=== PATIENT | male | born 1965 | race American Indian/Alaskan Native ===

== ENCOUNTER 2017-05-10 12:28 | Inpatient (IN) | payer OTHER ==
[2017-05-10] MEDS ORDERED: NACL 0.9% 1000 ML 1,000 ML IV ONE (12:50)
[2017-05-10] MEDS ORDERED: CARDIZEM IV ONE ×2 (12:51→13:22)
[2017-05-10 13:20] LABS: Basophils # (Auto) 0.1 K/mm3 (0.0-0.1); Basophils % (Auto) 0.9 % (0.0-1.8); Eosinophils # (Auto) 0.1 K/mm3 (0.0-0.4); Eosinophils % (Auto) 1.7 % (0.0-4.3); Hematocrit 46.1 % (35.5-45.6); Hemoglobin 15.5 gm/dl (11.8-15.2); Lymphocytes # (Auto) 2.1 K/mm3 (1.2-5.4); Lymphocytes % (Auto) 26.7 % (13.4-35.0); Mean Corpuscular HGB Conc 34 % (32-34); Mean Corpuscular Hemoglobin 28 pg (28-32); Mean Corpuscular Volume 84 fl (84-94); Monocytes # (Auto) 0.5 K/mm3 (0.0-0.8); Monocytes % (Auto) 5.8 % (0.0-7.3); Platelet Count 415 K/mm3 (140-440)
[2017-05-10] MEDS ORDERED: CARDIZEM/D5W 100MG/100ML 100 MG/100 ML BAG IV ONE (13:22)
[2017-05-10 13:27] LABS: BUN/Creatinine Ratio 13; Blood Urea Nitrogen 15 mg/dL (9-20); Calcium 9.3 mg/dL (8.4-10.2); Hemolysis Index 7
--- NOTE | 2017-05-10 13:27 | Emergency Department Report ---
HPI - General Chief Complaint: Arrhythmia/Palpitations Time Seen by Provider: 05/10/17 12:43 - HPI HPI: This is a 51 year-old male presents to the emergency department from [facility] cardiology with complaint of new onset atrial flutter with tachycardia. The patient was at [facility] 2 days ago for some exertional shortness of breath and chest pain. He was going to have a echocardiogram and stress test done but apparently they did not take his insurance. For this reason, he was set up to see the flower maker today to get a stress test done. He completed the stress test but then they noticed that he was having a rapid rate and appeared in atrial flutter. The patient has a history of hypertension. He is a nonsmoker and denies any illicit drug use. ED Past Medical Hx - Social History Smoking Status: Never Smoker - Medications Home Medications: Home Medications Medication Instructions Recorded Confirmed Last Taken Type Amlodipine Besylate [Norvasc] 5 mg PO QDAY 05/10/17 05/10/17 05/10/17 History Aspirin [Adult Low Dose Aspirin EC] 81 mg PO DAILY 05/10/17 05/10/17 05/10/17 History Pantoprazole [Protonix] 40 mg PO QDAY 05/10/17 05/10/17 Unknown History Simvastatin [Zocor TAB] 20 mg PO QHS 05/10/17 05/10/17 Unknown History ED Review of Systems ROS: Stated complaint: HIGH HEART RATE Other details as noted in HPI Comment: All other systems reviewed and negative Constitutional: denies: chills, fever Eyes: denies: eye pain, eye discharge, vision change ENT: denies: ear pain, throat pain Respiratory: denies: cough, shortness of breath, wheezing Cardiovascular: palpitations. denies: edema Gastrointestinal: denies: abdominal pain, nausea, diarrhea Genitourinary: denies: urgency, dysuria Musculoskeletal: denies: back pain, joint swelling, arthralgia Skin: denies: rash, lesions Neurological: denies: headache, weakness, paresthesias Physical Exam - Physical Exam Vital Signs: Vital Signs 05/10/17 12:50 Temperature 98.4 F Pulse Rate 140 H Respiratory 16 Rate Blood Pressure 132/78 [Right] O2 Sat by Pulse 98 Oximetry Physical Exam: GENERAL: The patient is well-developed well-nourished. HENT: Normocephalic. Atraumatic. Patient has moist mucous membranes. EYES: Extraocular motions are intact. Pupils equal reactive to light bilaterally. NECK: Supple. Trachea is midline. CHEST/LUNGS: Clear to auscultation. There is no respiratory distress noted. HEART/CARDIOVASCULAR: Irregular with rapid rate. No obvious murmurs. ABDOMEN: Abdomen is soft, nontender. Patient has normal bowel sounds. There is no abdominal distention. SKIN: Skin is warm and dry. NEURO: The patient is awake, alert, and oriented. The patient is cooperative. The patient has no focal neurologic deficits. The patient has normal speech and gait. MUSCULOSKELETAL: There is no tenderness or deformity. There is no limitation range of motion. There is no evidence of acute injury. ED Course Vital Signs 05/10/17 12:50 Temperature 98.4 F Pulse Rate 140 H Respiratory 16 Rate Blood Pressure 132/78 [Right] O2 Sat by Pulse 98 Oximetry ED Medical Decision Making - Lab Data Result diagrams: 05/10/17 12:56 05/10/17 12:56 - EKG Data -: EKG Interpreted by Me - EKG Data When compared to previous EKG there are: previous EKG unavailable Interpretation: other (atrial flutter, normal axis, rate of 142 bpm, no ST elevation RI) - Medical Decision Making The patient's EKG originally appeared consistent with an atrial flutter but after getting some Cardizem and being on the monitoring engineer it appears consistent with atrial fibrillation. Patient seems to respond to Cardizem but once he gets up or moves around his heart rate was spiked back up. He did not convert to a sinus rhythm. For this reason he will be placed on a Cardizem drip. Labs unremarkable and do not show any etiology of his symptoms. He will be admitted to the hospital for further evaluation, echocardiogram and cardiac consultation has been accepted for admission by the hospitalist, Dr. Alvarez. - Differential Diagnosis A-fib, A-flutter, RI, Hyperthyroidism Critical Care Time: No Critical care attestation.: If time is entered above; I have spent that time in minutes in the direct care of this critically ill patient, excluding procedure time. ED Disposition Clinical Impression: New onset atrial fibrillation, Atrial fibrillation with RVR Disposition: OP ADMIT IP TO THIS HOSP Is pt being admited?: Yes Does the pt Need Aspirin: Yes Condition: Stable Referrals: PRIMARY CARE, [Primary Care Provider] - 3-5 Days Time of Disposition: 14:57
[2017-05-10] MEDS ORDERED: BABY ASPIRIN PO ONE (14:57)
[2017-05-10] MEDS ORDERED: CARDIZEM 100 MG in D5W 100 ML IV ONE (15:00)
[2017-05-10] MEDS ORDERED: BABY ASPIRIN ONE (17:17)
[2017-05-10] MEDS: ELIQUIS PO SCH ×2 (17:43→23:06)
--- NOTE | 2017-05-10 18:06 | Consultation ---
History of Present Illness Consult date: 05/10/17 Requesting physician: GLORIA JIMENEZ Consult reason: arrhythmia (atrial flutter with a rapid ventricular response) History of present illness: 51-year-old gentleman with a past medical history of hypertension, hyperlipidemia, and gastroesophageal reflux disease who presents to [facility] emergency department with atrial flutter versus ectopic atrial tachycardia at about 142 bpm. The patient was being seen at [facility] heart specialists as an outpatient he was undergoing an exercise treadmill test and after the test developed an atrial arrhythmia. The patient was completely asymptomatic and unaware that his heart rate was: 142 bpm. Of note the patient reports that several weeks ago he was seen at an urgent care for chest pain or shortness of breath he subsequently was evaluated in the [facility] emergency department and was referred to a aircraft structural repair mechanic as an outpatient for follow-up. She will emergency department the patient was started on a Cardizem drip and subsequently converted to normal sinus rhythm. Past History Past Medical History: hypertension Past Surgical History: No surgical history Social history: denies: smoking, alcohol abuse, IV drug use Family history: no significant family history Medications and Allergies Allergies Allergy/AdvReac Type Severity Reaction Status Date / Time No Known Allergies Allergy Unverified 05/10/17 15:10 Home Medications Medication Instructions Recorded Confirmed Last Taken Type Amlodipine Besylate [Norvasc] 5 mg PO QDAY 05/10/17 05/10/17 05/10/17 History Aspirin [Adult Low Dose Aspirin EC] 81 mg PO DAILY 05/10/17 05/10/17 05/10/17 History Pantoprazole [Protonix] 40 mg PO QDAY 05/10/17 05/10/17 Unknown History Simvastatin [Zocor TAB] 20 mg PO QHS 05/10/17 05/10/17 Unknown History Active Meds: Active Medications Apixaban (Eliquis) 10 mg PO Q12HR KIANA PRN Reason: Protocol Last Admin: 05/10/17 17:43 Dose: 10 mg Sodium Chloride (Nacl 0.9% 1000 Ml) 1,000 mls @ 125 mls/hr IV ONCE ONE Stop: 05/10/17 20:49 Last Admin: 05/10/17 13:16 Dose: 125 mls/hr Diltiazem HCl 100 mg/ Dextrose 120 mls @ 6 mls/hr IV ONCE.ED ONE; 5 MG/HR PRN Reason: Protocol Stop: 05/11/17 10:59 Last Admin: 05/10/17 15:11 Dose: 5 mg/hr, 6 mls/hr Review of Systems Constitutional: no weight loss, no weight gain, no fever, no chills, no sweats Ears, nose, mouth and throat: deferred Cardiovascular: no chest pain, no orthopnea, no palpitations, no rapid/ irregular heart beat, no edema, no syncope, no lightheadedness, no shortness of breath Respiratory: no shortness of breath, no dyspnea on exertion, no wheezing, no pleurisy Gastrointestinal: no abdominal pain, no nausea, no vomiting, no diarrhea, no constipation Genitourinary Male: no dysuria, no hematuria Rectal: no pain, no bleeding Musculoskeletal: no neck stiffness, no neck pain, no shooting arm pain Integumentary: no rash, no pruritis Neurological: no head injury, no transient paralysis, no paralysis Psychiatric: no anxiety, no memory loss Endocrine: no cold intolerance, no heat intolerance Hematologic/Lymphatic: no easy bruising, no easy bleeding Allergic/Immunologic: no urticaria, no allergic rhinitis Physical Examination Vital Signs Temp Pulse Resp BP Pulse Ox 98.4 F 140 H 16 132/78 98 05/10/17 12:50 05/10/17 12:50 05/10/17 12:50 05/10/17 12:50 05/10/17 12:50 General appearance: no acute distress HEENT: Positive: PERRL, EOMI Neck: Positive: neck supple, trachea midline Cardiac: Positive: Reg Rate and Rhythm, Regular Rate Lungs: Positive: Normal Exam, clear to auscultation, Normal Breath Sounds Neuro: Positive: Grossly Intact. Negative: Numbness, Weakness Abdomen: Positive: Unremarkable, Soft, Active Bowel Sounds Male genitourinary: Positive: deferred Skin: Negative: Rash, Suspicious Lesions Extremities: Present: normal, warm. Absent: edema Results 05/10/17 12:56 05/10/17 12:56 CBC 05/10/17 Range/Units 12:56 WBC 7.9 (4.5-11.0) K/mm3 RBC 5.50 H (3.65-5.03) M/mm3 Hgb 15.5 H (11.8-15.2) gm/dl Hct 46.1 H (35.5-45.6) % Plt Count 415 (140-440) K/mm3 Lymph # 2.1 (1.2-5.4) K/mm3 [place] # 0.5 (0.0-0.8) K/mm3 Eos # 0.1 (0.0-0.4) K/mm3 Baso # 0.1 (0.0-0.1) K/mm3 Comprehensive Metabolic Panel 05/10/17 Range/Units 12:56 Sodium 137 (137-145) mmol/L Potassium 4.2 (3.6-5.0) mmol/L Chloride 97.1 L (98-107) mmol/L Carbon Dioxide 25 (22-30) mmol/L BUN 15 (9-20) mg/dL Creatinine 1.2 (0.8-1.5) mg/dL Glucose 110 H (75-100) mg/dL Calcium 9.3 (8.4-10.2) mg/dL - Imaging and Cardiology Echo: pending Assessment and Plan 51-year-old gentleman with a past medical history of hypertension, gastroesophageal reflux disease, and hyperlipidemia who presented to his aircraft structural repair mechanic office for an exercise treadmill test and was noted to develop an atrial tachycardia versus atrial flutter after the test. The patient was completely unaware of his heart rate and did not have any symptoms. Of note the patient does report several weeks back he was walking a flight of stairs and developed significant shortness of breath with chest discomfort. Currently the patient has converted to normal sinus rhythm. Plan: Cardizem 120mg in AM ECHO Continue oral anticoagulation Discussed with the patient briefly the possibility of atrial flutter ablation and he should follow-up as an outpatient with myself Dr. Vazquez Hoff, to discuss further.[phone]
--- NOTE | 2017-05-10 20:48 | History and Physical Report ---
History of Present Illness Date of examination: 05/10/17 Date of admission: 05/10/17 16:36 Chief complaint: CC Palpitations for 3 hours History of present illness: HPI 51 year-old male with PMH of HTN HLD and Gerd sent to the emergency department from [facility] with complaint of new onset atrial flutter with tachycardia. 2 days ago He had Chest pain and SOB which resolved . For this reason, he was set up to see the crossbar frame wirer today to get a stress test done. He completed the stress test but then they noticed that he was having a rapid rate and appeared in atrial flutter. The patient has a history of hypertension. He is a nonsmoker and denies any illicit drug use. PMH Htn HLD and Gerd Surg Hx None Fam Hx Htn Social History Smoking Status: Never Smoker Medications Home Medications: Home Medications Medication Instructions Recorded Confirmed Last Taken Type Amlodipine Besylate [Norvasc] 5 mg PO QDAY 05/10/17 05/10/17 05/10/17 History Aspirin [Adult Low Dose Aspirin EC] 81 mg PO DAILY 05/10/17 05/10/17 05/10/17 History Pantoprazole [Protonix] 40 mg PO QDAY 05/10/17 05/10/17 Unknown History Simvastatin [Zocor TAB] 20 mg PO QHS 05/10/17 05/10/17 Unknown History Review of Systems Stated complaint: HIGH HEART RATE Other details as noted in HPI Comment: All other systems reviewed and negative Constitutional: denies: chills, fever Eyes: denies: eye pain, eye discharge, vision change ENT: denies: ear pain, throat pain Respiratory: denies: cough, shortness of breath, wheezing Cardiovascular: palpitations. denies: edema Gastrointestinal: denies: abdominal pain, nausea, diarrhea Genitourinary: denies: urgency, dysuria Musculoskeletal: denies: back pain, joint swelling, arthralgia Skin: denies: rash, lesions Neurological: denies: headache, weakness, paresthesias Past History Past Medical History: hypertension Past Surgical History: No surgical history Social history: denies: smoking, alcohol abuse, IV drug use Family history: no significant family history Medications and Allergies Allergies Allergy/AdvReac Type Severity Reaction Status Date / Time No Known Allergies Allergy Unverified 05/10/17 15:10 Home Medications Medication Instructions Recorded Confirmed Last Taken Type Amlodipine Besylate [Norvasc] 5 mg PO QDAY 05/10/17 05/10/17 05/10/17 History Aspirin [Adult Low Dose Aspirin EC] 81 mg PO DAILY 05/10/17 05/10/17 05/10/17 History Pantoprazole [Protonix] 40 mg PO QDAY 05/10/17 05/10/17 Unknown History Simvastatin [Zocor TAB] 20 mg PO QHS 05/10/17 05/10/17 Unknown History Active Meds: Active Medications Apixaban (Eliquis) 10 mg PO Q12HR KIANA PRN Reason: Protocol Last Admin: 05/10/17 17:43 Dose: 10 mg Diltiazem HCl (Cardizem Cd) 120 mg PO QDAY KIANA Sodium Chloride (Nacl 0.9% 1000 Ml) 1,000 mls @ 125 mls/hr IV ONCE ONE Stop: 05/10/17 20:49 Last Admin: 05/10/17 13:16 Dose: 125 mls/hr Diltiazem HCl 100 mg/ Dextrose 120 mls @ 6 mls/hr IV ONCE.ED ONE; 5 MG/HR PRN Reason: Protocol Stop: 05/11/17 10:59 Last Admin: 05/10/17 15:11 Dose: 5 mg/hr, 6 mls/hr Exam - Constitutional Vitals: Temp Pulse Resp BP Pulse Ox 98.4 F 77 20 129/92 100 05/10/17 12:50 05/10/17 20:30 05/10/17 20:30 05/10/17 20:30 05/10/17 20:16 General appearance: Present: mild distress, well-nourished - EENT Eyes: Present: PERRL ENT: hearing intact, clear oral mucosa - Neck Neck: Present: supple, normal ROM - Respiratory Respiratory effort: normal Respiratory: bilateral: CTA - Cardiovascular Heart rate: 110 Rhythm: regularly irregular Heart Sounds: Present: S1 & S2. Absent: rub, click - Extremities Extremities: no ischemia, pulses intact, pulses symmetrical, No edema Peripheral Pulses: within normal limits - Abdominal General gastrointestinal: Present: soft, non-tender, non-distended, normal bowel sounds Male genitourinary: Present: normal - Rectal Rectal Exam: deferred - Integumentary Integumentary: Present: clear, warm, dry - Musculoskeletal Musculoskeletal: gait normal, strength equal bilaterally - Psychiatric Psychiatric: appropriate mood/affect, intact judgment & insight - Neurologic Neurologic: CNII-XII intact, moves all extremities - Allied Health Allied health notes reviewed: nursing Results - Labs CBC & Chem 7: 05/11/17 03:39 05/11/17 03:39 Labs: Laboratory Last Values WBC 7.9 K/mm3 (4.5-11.0) 05/10/17 12:56 RBC 5.50 M/mm3 (3.65-5.03) H 05/10/17 12:56 Hgb 15.5 gm/dl (11.8-15.2) H 05/10/17 12:56 Hct 46.1 % (35.5-45.6) H 05/10/17 12:56 MCV 84 fl (84-94) 05/10/17 12:56 MCH 28 pg (28-32) 05/10/17 12:56 MCHC 34 % (32-34) 05/10/17 12:56 RDW 14.0 % (13.2-15.2) 05/10/17 12:56 Plt Count 415 K/mm3 (140-440) 05/10/17 12:56 Lymph % (Auto) 26.7 % (13.4-35.0) 05/10/17 12:56 [place] % (Auto) 5.8 % (0.0-7.3) 05/10/17 12:56 Eos % (Auto) 1.7 % (0.0-4.3) 05/10/17 12:56 Baso % (Auto) 0.9 % (0.0-1.8) 05/10/17 12:56 Lymph # 2.1 K/mm3 (1.2-5.4) 05/10/17 12:56 [place] # 0.5 K/mm3 (0.0-0.8) 05/10/17 12:56 Eos # 0.1 K/mm3 (0.0-0.4) 05/10/17 12:56 Baso # 0.1 K/mm3 (0.0-0.1) 05/10/17 12:56 Seg Neutrophils % 64.9 % (40.0-70.0) 05/10/17 12:56 Seg Neutrophils # 5.1 K/mm3 (1.8-7.7) 05/10/17 12:56 Sodium 137 mmol/L (137-145) 05/10/17 12:56 Potassium 4.2 mmol/L (3.6-5.0) 05/10/17 12:56 Chloride 97.1 mmol/L (98-107) L 05/10/17 12:56 Carbon Dioxide 25 mmol/L (22-30) 05/10/17 12:56 Anion Gap 19 mmol/L 05/10/17 12:56 BUN 15 mg/dL (9-20) 05/10/17 12:56 Creatinine 1.2 mg/dL (0.8-1.5) 05/10/17 12:56 Estimated GFR > 60 ml/min 05/10/17 12:56 BUN/Creatinine Ratio 13 % 05/10/17 12:56 Glucose 110 mg/dL (75-100) H 05/10/17 12:56 Calcium 9.3 mg/dL (8.4-10.2) 05/10/17 12:56 Troponin T < 0.010 ng/mL (0.00-0.029) 05/10/17 12:56 TSH 1.730 mlU/mL (0.270-4.200) 05/10/17 12:56 Short CBC 05/10/17 05/11/17 Range/Units 12:56 03:39 WBC 7.9 8.4 (4.5-11.0) K/mm3 Hgb 15.5 H 15.0 (11.8-15.2) gm/dl Hct 46.1 H 45.3 (35.5-45.6) % Plt Count 415 327 (140-440) K/mm3 BMP 05/10/17 05/11/17 12:56 03:39 Sodium 137 138 Potassium 4.2 3.7 Chloride 97.1 L 101.0 Carbon Dioxide 25 24 BUN 15 15 Creatinine 1.2 1.1 Glucose 110 H 132 H Calcium 9.3 8.6 Cardiac Enzymes 05/10/17 05/10/17 05/11/17 Range/Units 12:56 21:14 03:39 Troponin T < 0.010 < 0.010 < 0.010 (0.00-0.029) ng/mL Liver Function 02/10/18 Range/Units 03:39 Total Bilirubin 0.20 (0.1-1.2) mg/dL AST 14 (5-40) units/L ALT 12 (7-56) units/L Alkaline Phosphatase 132 H (35-129) units/L Albumin 3.6 L (3.9-5) g/dL - Imaging and Cardiology EKG: report reviewed (A fib with RVR) Assessment and Plan Advance Directives: Yes (Full code) VTE prophylaxis?: Chemical Plan of care discussed with patient/family: Yes - Patient Problems (1) Atrial fibrillation with RVR Current Visit: Yes Status: Acute Plan to address problem: IV cardizem drip and transition to PO Cardizem CD Cardiology consult requested 120 mg po qd Had stress in [facility] Cardiology Cardiology consult requested (2) HTN (hypertension) Current Visit: Yes Status: Chronic Qualifiers: Hypertension type: essential hypertension Qualified Code(s): I10 - Essential (primary) hypertension Plan to address problem: On Amlodipine which was stopped b/c of Cardizem being started Adjust meds as necessary (3) HLD (hyperlipidemia) Current Visit: Yes Status: Chronic Qualifiers: Hyperlipidemia type: mixed hyperlipidemia Qualified Code(s): E78.2 - Mixed hyperlipidemia Plan to address problem: Cont Statins (4) GERD (gastroesophageal reflux disease) Current Visit: Yes Status: Chronic Qualifiers: Esophagitis presence: without esophagitis Qualified Code(s): K21.9 - Gastro -esophageal reflux disease without esophagitis Plan to address problem: Cont PPI's (5) DVT prophylaxis Current Visit: Yes Status: Acute Plan to address problem: On Lovenox
[2017-05-10] MEDS ORDERED: HALFPRIN EC PO SCH (21:00)
[2017-05-10] MEDS ORDERED: NORVASC PO SCH (21:00)
[2017-05-10] MEDS ORDERED: PRAVACHOL PO SCH (22:00)
[2017-05-10] MEDS: PROTONIX PO SCH (23:06)
[2017-05-11 04:23] LABS: Alanine Aminotransferase 12 units/L (7-56); Albumin 3.6 g/dL (3.9-5); BUN/Creatinine Ratio 14; Blood Urea Nitrogen 15 mg/dL (9-20); Calcium 8.6 mg/dL (8.4-10.2); Hemolysis Index 10
[2017-05-11 04:44] LABS: Hematocrit 45.3 % (35.5-45.6); Lymphocytes % (Auto) 37.2 % (13.4-35.0); Mean Corpuscular HGB Conc 33 % (32-34); Mean Corpuscular Hemoglobin 28 pg (28-32); Mean Corpuscular Volume 85 fl (84-94); Platelet Count 327 K/mm3 (140-440); Red Blood Count 5.31 M/mm3 (3.65-5.03); Red Cell Distribution Width 13.9 % (13.2-15.2)
[2017-05-11 04:45] LABS: Basophils % (Auto) 0.4 % (0.0-1.8); Eosinophils # (Auto) 0.2 K/mm3 (0.0-0.4); Eosinophils % (Auto) 2.6 % (0.0-4.3); Lymphocytes # (Auto) 3.1 K/mm3 (1.2-5.4); Monocytes # (Auto) 0.7 K/mm3 (0.0-0.8); Monocytes % (Auto) 8.1 % (0.0-7.3)
--- NOTE | 2017-05-11 08:57 | Progress Note ---
Assessment and Plan new onset aflutter hypercougable state htn rec: pt converted to nsr d.c norvasc start cardizem cd 120mg and elquis pt does not feel the afib/flutter and unclear durations, pt will followup with dr. loaiza for abalation. Subjective Date of service: 05/11/17 Principal diagnosis: aflutter Interval history: pt states feeling better Objective Vital Signs Temp Pulse Resp BP BP Pulse Ox 05/11/17 08:09 77 05/11/17 04:18 98.3 F 77 20 115/78 97 05/11/17 00:00 98.2 F 72 20 107/65 99 05/10/17 23:31 71 05/10/17 23:16 73 110/72 05/10/17 22:00 20 05/10/17 21:13 98.7 F 73 20 110/72 98 05/10/17 20:46 83 32 H 129/92 98 05/10/17 20:34 81 25 H 121/85 99 05/10/17 20:30 77 20 129/92 05/10/17 20:29 82 15 121/85 99 05/10/17 20:16 79 18 121/85 100 05/10/17 20:00 80 19 121/85 98 05/10/17 19:46 81 20 113/79 99 05/10/17 19:30 79 20 125/87 93 05/10/17 19:16 89 15 113/79 99 05/10/17 19:00 83 19 132/87 99 05/10/17 18:46 80 13 124/90 98 05/10/17 18:30 75 15 124/90 05/10/17 18:19 18 05/10/17 18:16 79 16 143/79 99 05/10/17 18:00 81 23 133/98 99 05/10/17 17:46 83 15 128/94 99 05/10/17 17:30 77 21 128/94 98 05/10/17 17:16 80 28 H 122/70 99 05/10/17 16:46 88 26 H 122/70 98 05/10/17 16:23 127 H 05/10/17 16:16 112 H 19 123/79 98 05/10/17 16:00 114 H 19 123/79 05/10/17 15:46 113 H 20 128/82 100 05/10/17 15:16 110 H 17 126/75 98 05/10/17 15:00 120 H 19 126/75 99 05/10/17 14:46 104 H 13 110/75 100 05/10/17 14:30 112 H 13 110/75 97 05/10/17 14:16 140 H 18 119/83 100 05/10/17 14:00 109 H 20 119/83 98 05/10/17 13:46 144 H 13 133/89 98 05/10/17 13:34 142 H 05/10/17 13:30 95 H 15 115/72 100 05/10/17 13:15 135 H 16 116/84 100 05/10/17 13:00 126 H 22 127/88 96 05/10/17 12:50 98.4 F 140 H 16 132/78 98 - Physical Examination General: Appears Well HEENT: Positive: PERRL, EOMI Neck: Positive: neck supple, trachea midline Cardiac: Positive: Reg Rate and Rhythm Lungs: Positive: Normal Exam Neuro: Positive: Grossly Intact. Negative: Numbness, Weakness Abdomen: Positive: Unremarkable, Soft, Active Bowel Sounds Skin: Negative: Rash, Suspicious Lesions Extremities: Present: normal, warm. Absent: edema - Labs and Meds Cardiac Enzymes 05/11/17 Range/Units 03:39 AST 14 (5-40) units/L CBC 05/10/17 05/11/17 Range/Units 12:56 03:39 WBC 7.9 8.4 (4.5-11.0) K/mm3 RBC 5.50 H 5.31 H (3.65-5.03) M/mm3 Hgb 15.5 H 15.0 (11.8-15.2) gm/dl Hct 46.1 H 45.3 (35.5-45.6) % Plt Count 415 327 (140-440) K/mm3 Lymph # 2.1 3.1 (1.2-5.4) K/mm3 [place] # 0.5 0.7 (0.0-0.8) K/mm3 Eos # 0.1 0.2 (0.0-0.4) K/mm3 Baso # 0.1 0.0 (0.0-0.1) K/mm3 Comprehensive Metabolic Panel 02/09/18 02/10/18 Range/Units 12:56 03:39 Sodium 137 138 (137-145) mmol/L Potassium 4.2 3.7 (3.6-5.0) mmol/L Chloride 97.1 L 101.0 (98-107) mmol/L Carbon Dioxide 25 24 (22-30) mmol/L BUN 15 15 (9-20) mg/dL Creatinine 1.2 1.1 (0.8-1.5) mg/dL Glucose 110 H 132 H (75-100) mg/dL Calcium 9.3 8.6 (8.4-10.2) mg/dL AST 14 (5-40) units/L ALT 12 (7-56) units/L Alkaline Phosphatase 132 H (35-129) units/L Total Protein 6.4 (6.3-8.2) g/dL Albumin 3.6 L (3.9-5) g/dL - Imaging and Cardiology EKG: report reviewed (A fib with RVR) Echo: pending - Telemetry EKG Rhythm: Sinus Rhythm (pt converted last night)
[2017-05-11] MEDS: PROTONIX PO SCH (09:22)
[2017-05-11] MEDS ORDERED: ELIQUIS PO SCH (10:00)
[2017-05-11] MEDS ORDERED: CARDIZEM CD PO SCH (10:00)
--- NOTE | 2017-05-11 11:28 | Discharge Summary ---
Providers - Providers Date of Admission: 05/10/17 16:36 Attending physician: KAN CHAVES MD 05/10/17 14:07 Consult to Cardiology [CONS] Routine Consulting Provider: BRITTNEY LOAIZA Reason For Exam: New onset Atrial Flutter with RVR Primary care physician: JESSI MESA Hospitalization Reason for admission: aflutter with rvr Condition: Stable Hospital course: 51 year-old male with PMH of HTN HLD and Gerd sent to the emergency department from [facility] with complaint of new onset atrial flutter with tachycardia. 2 days ago He had Chest pain and SOB which resolved . For this reason, he was set up to see the public safety telecommunicator today to get a stress test done. He completed the stress test but then they noticed that he was having a rapid rate and appeared in atrial flutter. The patient has a history of hypertension. He is a nonsmoker and denies any illicit drug use. Patient was started on on cardizem drip and converted to NSR. Cardiology saw the patient and recommended D/C Norvasc and start cardizem cd 120mg and elquis pt does not feel the afib/flutter and unclear durations, pt will followup with dr. loaiza for abalation. Discharge Diagnosis new onset aflutter hypercougable state htn GERD Disposition: DC-01 TO HOME OR SELFCARE Time spent for discharge: 35 MINS Core Measure Documentation - Palliative Care Palliative Care/ Comfort Measures: Not Applicable - Core Measures Any of the following diagnoses?: none - VTE Discharge Requirements Deep Vein Thrombosis/Pulmonary Embolism Present on Admission: No Exam - Constitutional Vitals: Temp Pulse Resp BP Pulse Ox 98.5 F 83 18 124/81 98 05/11/17 09:18 05/11/17 09:18 05/11/17 09:18 05/11/17 09:18 05/11/17 09:18 General appearance: Present: no acute distress, well-nourished - EENT Eyes: Present: PERRL, EOM intact ENT: hearing intact, clear oral mucosa, dentition normal - Neck Neck: Present: supple, normal ROM - Respiratory Respiratory: bilateral: CTA - Cardiovascular Rhythm: regular Heart Sounds: Present: S1 & S2. Absent: systolic murmur, diastolic murmur - Extremities Extremities: no ischemia, pulses intact, pulses symmetrical, No edema, normal temperature, normal color, Full ROM Peripheral Pulses: within normal limits - Abdominal General gastrointestinal: Present: soft, non-tender, non-distended, normal bowel sounds - Integumentary Integumentary: Present: clear, warm, dry - Musculoskeletal Musculoskeletal: strength equal bilaterally - Psychiatric Psychiatric: appropriate mood/affect, intact judgment & insight, memory intact, cooperative - Neurologic Neurologic: CNII-XII intact - Allied Health Allied health notes reviewed: nursing Plan Activity: advance as tolerated, fall precautions Diet: low cholesterol Special Instructions: record daily BP diary Follow up with: [facility] [Provider Group] - 7 Days BRITTNEY LOAIZA MD [Staff Physician] - 7 Days PRIMARY CAREMD [Referring] - 3-5 Days Prescriptions: Apixaban [Eliquis] 5 mg PO Q12HR #60 tablet Diltiazem Cd [Cardizem CD] 120 mg PO QDAY #60 capsule
[2017-05-11 13:37] VITALS: BP 126/82
== END 2017-05-11 14:49 | disposition home or self-care (01) | DRG 309 ==
LOC: ED 12:28 → 4A 16:36
PROVIDERS: ADMIT Internal Medicine; ATTEND Internal Medicine
DX: I48.92 Unspecified atrial flutter (principal); D68.59 Other primary thrombophilia; I48.91 Unspecified atrial fibrillation; I10 Essential (primary) hypertension; K21.9 Gastro-esophageal reflux disease without esophagitis; R00.0 Tachycardia, unspecified; Z79.82 Long term (current) use of aspirin; Z79.899 Other long term (current) drug therapy
CPT/HCPCS: 36415; 80048; 80053; 84443; 84484; 85025; 93005; 93010; 93306; A9270-GY; J7030

== ENCOUNTER 2017-07-30 12:47 | Day surgery (SDC) | payer OTHER ==
[2017-07-30] MEDS ORDERED: NACL 0.9% 1000 ML 1,000 ML ONE (14:05)
[2017-07-30 14:09] LABS: Basophils # (Auto) 0.1 K/mm3 (0.0-0.1); Basophils % (Auto) 0.6 % (0.0-1.8); Eosinophils # (Auto) 0.2 K/mm3 (0.0-0.4); Eosinophils % (Auto) 1.4 % (0.0-4.3); Hematocrit 44.3 % (35.5-45.6); Hemoglobin 14.7 gm/dl (11.8-15.2); Lymphocytes # (Auto) 2.4 K/mm3 (1.2-5.4); Lymphocytes % (Auto) 21.1 % (13.4-35.0); Mean Corpuscular HGB Conc 33 % (32-34); Mean Corpuscular Hemoglobin 28 pg (28-32); Mean Corpuscular Volume 84 fl (84-94); Monocytes # (Auto) 1.1 K/mm3 (0.0-0.8); Monocytes % (Auto) 9.5 % (0.0-7.3); Platelet Count 412 K/mm3 (140-440); Red Cell Distribution Width 14.3 % (13.2-15.2)
[2017-07-30 14:20] LABS: INR 0.99 (0.87-1.13)
[2017-07-30 14:34] LABS: BUN/Creatinine Ratio 12; Blood Urea Nitrogen 15 mg/dL (9-20); Calcium 9.4 mg/dL (8.4-10.2); Hemolysis Index 0
[2017-07-30] MEDS ORDERED: DIPRIVAN 10 MG/ML IV ONE (14:44)
[2017-07-30] MEDS ORDERED: XYLOCAINE MPF 2% ONE (14:45)
[2017-07-30] MEDS ORDERED: LOPRESSOR IV ONE (14:57)
[2017-07-30] MEDS ORDERED: CARDIZEM CD PO ONE (15:04)
[2017-07-30 15:24] VITALS: BP 113/80
--- NOTE | 2017-09-05 19:36 | Electrophysiological Studies ---
ELECTROPHYSIOLOGY STUDY PROCEDURE: Anesthesia was maintained through the anesthesiology service. The patient was monitored in the forestry farm laborer holding area. Zoll pads were placed in the left anterior sternal and posterior scapular region. 100 joules of synced biphasic energy was applied with successful conversion of atrial flutter to normal sinus rhythm. COMPLICATIONS: None. ASSESSMENT: Successful direct current cardioversion of atrial flutter to a normal sinus rhythm. PLAN: 1. Continue oral anticoagulation. 2. Follow up with General Cardiology in 1 month. JOB# [id number] MMW/NTS
== END 2017-07-30 16:00 | disposition home or self-care (01) ==
LOC: CATHLABREC 12:47 → EDSTATUS 14:15 → CATHLABREC 16:00
PROVIDERS: ATTEND Internal Medicine Cardiovascular Disease
DX: I48.92 Unspecified atrial flutter (principal); I10 Essential (primary) hypertension; E78.2 Mixed hyperlipidemia; Z79.82 Long term (current) use of aspirin; Z79.01 Long term (current) use of anticoagulants
CPT/HCPCS: 36415; 80048; 85025; 85610; 92960; 93005; 93010; 96374; J2704; J7030